=== PATIENT | male | born 1985 | race Caucasian/White ===

== ENCOUNTER → 2025-02-07 | Outpatient (CLI) | payer BC, SELFPAY ==
--- NOTE | 2025-02-07 09:46 | XR_ITS ---
Examination: PA lateral chest 2 views TECHNIQUE: Upright PA lateral chest 2 views Exam date and time: February 07, 2025 1019 hours INDICATIONS: History occupational exposure. FINDINGS: Normal heart size Blunting of the right lateral costophrenic angle. No pneumonia or pulmonary edema The osseous structures are intact IMPRESSION: Blunting of the right lateral costophrenic angle
[2025-02-07 10:55] LABS: Collection Type, Urine Clean Catch; RBC,Urine 0 /hpf (0-3); Squamous Epithelial Cell,Urine 0 /hpf (0-5); WBC,Urine 0 /hpf (0-5)
[2025-02-07 11:36] LABS: Basophils # (Auto) 0.1 Thou/mm3 (0.0-0.2); Basophils % (Auto) 1 % (0-2.5); Eosinophils # (Auto) 0.1 Thou/mm3 (0.0-0.5); Eosinophils % (Auto) 1 % (0-10); Hematocrit 46.8 % (41.0-53.0); Hemoglobin 16.4 g/dL (13.5-16.0); Immature Granulocytes % (Auto) 0 % (0-0); Immature Granulocytes Auto 0.02 Thou/mm3 (0.00-0.00); Lymphocytes # (Auto) 1.9 Thou/mm3 (1.0-4.8); Lymphocytes % (Auto) 26 % (10-50); Mean Corpuscular Hemoglobin 32.7 pg (25.0-35.0); Mean Corpuscular Volume 93 fL (80-100); Monocytes # (Auto) 0.5 Thou/mm3 (0.0-0.8); Monocytes % (Auto) 7 % (0-12); Neutrophils # (Auto) 4.9 Thou/mm3 (1.8-7.7); Neutrophils % (Auto) 65 % (37-80); Nucleated Red Blood Cell % 0 /100 WBC (0); Platelet Count 268 Thou/mm3 (140-440); RDW Standard Deviation 40.2 fL (35.1-43.9); Red Blood Count 5.02 Miln/mm3 (4.50-5.90); White Blood Count 7.5 Thou/mm3 (3.8-10.6)
[2025-02-07 11:41] LABS: Alanine Aminotransferase 16 U/L (10-49); Albumin, Serum 5.1 gm/dL (3.5-5.0); Alkaline Phosphatase 70 U/L (46-116); Anion Gap 5 (7-16); Aspartate Amino Transferase 20 U/L (0-34); BUN/Creatinine Ratio 10 Ratio (12-20); Bilirubin,Total 0.8 mg/dL (0.3-1.2); Blood Urea Nitrogen 11 mg/dL (9-23); Calcium 10.1 mg/dL (8.3-10.6); Calcium (Corrected) 10.1 mg/dL (8.5-10.1); Carbon Dioxide 28.8 mMol/L (20.0-31.0); Chloride 102 mMol/L (98-107); Creatinine (Component) 1.1 mg/dL (0.6-1.3); Globulin 2.6 gm/dL (2.3-3.5); Glucose 107 mg/dL (74-106); Osmolality,Calculated 271 (275-295); Potassium 4.2 mMol/L (3.4-5.1); Sodium 136 mMol/L (136-145); Thyroid Stimulating Hormone 0.61 uIU/mL (0.55-4.78); Total Protein 7.7 gm/dL (5.7-8.2); eGFR > 60 See Note
[2025-02-07 11:47] LABS: Bacteria,Urine Rare; Bilirubin,Urine Negative (Negative); Blood,Urine Negative (Negative); Clarity,Urine Turbid (Clear/Hazy); Color,Urine Lt-Yellow (Lt Yel-Yel); Culture Indicated,Urine Not Indicated; Glucose, Urine Negative (Negative); Ketones,Urine Negative (Negative); Leukocyte Esterase,Urine Negative (Negative); Nitrite,Urine Negative (Negative); Protein,Urine Negative (Neg - Trace); Urobilinogen,Urine Negative mg/dL (0.0-1.0)
[2025-02-07 11:55] LABS: Prostate Specific Antigen 1.36 ng/mL (0-4.00)
[2025-02-07 15:54] LABS: Glucose Estimated Average 103 mg/dL (80-131); Hemoglobin A1C 5.2 % Hgb (4.8-6.0)
[2025-02-07 16:18] LABS: Cardiac Risk Estimate 3.9 RATIO (4.0-6.7); Cholesterol 175 mg/dL (132-200); HDL Cholesterol 45 mg/dL (40-60); LDL Cholesterol,Calculated 111 mg/dL (0-130); Triglycerides 97 mg/dL (30-150)
== END | disposition home or self-care (01) ==
LOC: COPL 09:24
PROVIDERS: PCP Family Medicine; Referring Provider Registered Nurse; Visit Provider Radiology Diagnostic Radiology
DX: Z57.9 Occupational exposure to unspecified risk factor (principal); Z00.00 Encounter for general adult medical examination without abnormal findings
CPT/HCPCS: 36415; 71046; 80053; 80061; 81001; 83036; 84153; 84443; 85025

== ENCOUNTER 2025-03-18 10:41 | Emergency (ER) | payer BC, SELFPAY ==
[2025-03-18 10:50] VITALS: BP 175/115; PULSE 51; RESP 17; TEMP 36.7; O2SAT 100; BMI 28.3
--- NOTE | 2025-03-18 11:11 | XR_ITS ---
Examination: Left elbow 2 views Technique one AP lateral left elbow 2 views Date and time: March 18, 2025, 11:51 AM Indications: Injury to elbow today with dislocation. Findings: Distal humerus displaced anteriorly relative to the ulna and radial head Tiny fracture fragments adjacent to the ulnar notch and adjacent to the radial head Impression: Total elbow dislocation
--- NOTE | 2025-03-18 11:28 | EDNOTE_ITS ---
ED General RME/HPI General Chief complaint: Extremity Injury, Upper Stated complaint: Left elbow pain from fall Time Seen by Provider: 03/18/25 11:10 Arrival date/time: 03/18/25 10:41 Limitations: no limitations RME / HPI RME / HPI narrative: DR. SCHAEFER MAIN ED EVALUATION: 39 year old male presents to the Emergency Department with complaint of left elbow pain/ injury secondary to fall prior to arrival. He states he fell and hit his left elbow with a stationary object. He has an obvious deformity to the left elbow area. No other injuries or symptoms reported at this time. Related Data Home Medications ?Medication ?Instructions ?Recorded ?Confirmed No Known Home Medications 05/03/2404/06 Allergies Allergy/AdvReac Type Severity Reaction Status Date / Time No Known Allergies Allergy Verified 03/18/25 10:45 Review of Systems Review of Systems Systems Reviewed: All systems reviewed, normal except as documented Past Medical History Past Medical History GASTROINTESTINAL: Positive Gastrointestinal Disorders (infection liver), Diverticulitis and Diverticulosis OTHER HISTORY: Positive Hospitalization (diverticulitis, Covid) and Chicken Pox Social History SMOKING STATUS: Never smoker SUBSTANCE USE: does not use ALCOHOL: Never ED Exam General Limitations: Present no limitations General appearance: Present alert and in no apparent distress Head Head exam: Present atraumatic, normocephalic and normal inspection Eye Eye exam: Present normal appearance, PERRL and EOMI ENT ENT exam: Present normal exam, normal oropharynx and mucous membranes moist Neck Neck exam: Present normal inspection, full ROM and trachea midline Chest Chest inspection: Present normal inspection and symmetric chest wall rise Respiratory Respiratory exam: Present normal lung sounds bilaterally Cardiovascular Cardiovascular exam: Present regular rate, normal rhythm and normal heart sounds Abdominal Exam Abdominal exam: Present soft and normal bowel sounds Extremities Exam Extremities exam: Present normal inspection Expanded Upper Extremity Exam Elbow exam: Present deformity (obvious deformity to the posterior left elbow) Back Exam Back exam: Present normal inspection and full ROM Neurological Exam Neurological exam: Present alert, oriented X3 and CN II-XII intact Psychiatric Psychiatric exam: Present normal affect and normal mood Skin Skin exam: Present warm, dry, intact and normal color Course Quality Measures none Orders Category Date Time Status sling [Splint / Immobilizer] STAT Care 03/18/25 12:15 Completed XR elbow LT 2V Stat Exams 03/18/25 11:11 Completed XR elbow comp LT min 3V Stat Exams 03/18/25 12:51 Completed Etomidate Inj [Amidate Inj] Med 03/18/25 11:11 Discontinued 20 mg IV X1 ONE fentaNYL INJ [Sublimaze Inj] Med 03/18/25 11:11 Discontinued 50 mcg IVP X1 ONE Vital Signs Vital signs: Vital Signs Temperature 98.0 F 03/18/25 10:50 Pulse Rate 51 L 03/18/25 10:50 Respiratory Rate 17 03/18/25 10:50 Blood Pressure 175/115 H 03/18/25 10:50 Pulse Oximetry (%) 100 03/18/25 10:50 Oxygen Delivery Method Room Air 03/18/25 10:50 Procedures -ED Orthopedic Joint Reduction Joint #1: Time Out Performed: Yes Side: Left Joint Reduction Location: elbow Analgesia: other (fentanyl) Shoulder Technique Used (if applicable): traction/counter-traction Technique used: traction/counter-traction Post-reduction neuro exam: intact Post-reduction vascular: intact Post Reduction X-Ray Obtained: Yes Post Reduction X-Ray Results: reduced Splint Applied: Yes Patient Tolerated Procedure: well and no complications Discharge Plan Plan Patient Disposition: HOME (Self Care) Patient condition on transfer: Stable Prescriptions/Referrals Prescriptions/Med Rec: No Action No Known Home Medications Referrals: Lynette Tellez NP [Primary Care Provider] - In 1 week Problem List Clinical Impression: Dislocation of elbow, closed Patient/Caregiver Discharge Instructions Discharge Activity: activity as tolerated Education Materials: ED Elbow Dislocation Print Language: Greenlandic Stand Alone Forms: Nickie Award Info., Work/School Release, Patient Portal Info Letter MDM Clinical Information Provided by patient Medical Records Reviewed [facility] Meds/Rx Considered, not Ordered None Labs/Rad/Tests considered, not Ordered None Chronic Illness/Social Conditions Add or document further as needed: Diverticulitis, hospitalization. EKG EKG not done Lab Interpretation Labs: none Imaging Radiology reports / interpretation(s): Procedure(s): XR elbow comp LT min 3V Accession Number(s): [id number] cc: Pavel Schaefer MD; Valentin Amos MD; Lynette Tellez NP~ Examination: Left Computer: AP lateral left elbow 2 views Date and time: March 08, 2025 hours Comparison March 18, 2025, 1153 am INdications: elbow dislocation today Findings: A successful reduction of elbow dislocation. No fx Impression: Successful reduction elbow dislocation. Dictated By: Valentin Amos MD Procedure(s): XR elbow LT 2V Accession Number(s): [id number] cc: Pavel Schaefer MD; Valentin Amos MD; Lynette Tellez NP~ Examination: Left elbow 2 views Technique one AP lateral left elbow 2 views Date and time: March 18, 2025, 11:51 AM Indications: Injury to elbow today with dislocation. Findings: Distal humerus displaced anteriorly relative to the ulna and radial head Tiny fracture fragments adjacent to the ulnar notch and adjacent to the radial head Impression: Total elbow dislocation Dictated By: Valentin Amos MD Medication Administration(s) Medication Administration History Discontinued Medications Etomidate (Etomidate Inj 2 Mg/Ml Vial 10 Ml) 20 mg 0.3 mg/kg (20 mg) IV X1 ONE Stop: 03/18/25 11:12 Last Admin: 03/18/25 12:35 Dose: Not Given Documented By: BETSY Non-Admin Reason: Cancelled by Provider Fentanyl Citrate (Fentanyl Cit Inj 50 Mcg/Ml Amp 2ml) 50 mcg IVP X1 ONE Stop: 03/18/25 11:12 Last Admin: 03/18/25 12:05 Dose: 50 mcg Documented By: BETSY Diagnosis Differential diagnosis: left shoulder fracture, left shoulder dislocation, fall Most likely dx, and/or detailed dx discussion: Dislocation of elbow, closed Dispositon Disposition: Discharge Home
[2025-03-18] MEDS: fentaNYL CIT INJ 50 mCg/ML AMP 2ML IVP (12:05)
[2025-03-18 12:26] VITALS: BP 139/99; PULSE 60; RESP 16; TEMP 37.1; O2SAT 95
--- NOTE | 2025-03-18 12:51 | XR_ITS ---
Examination: Left Computer: AP lateral left elbow 2 views Date and time: March 08, 2025 hours Comparison March 18, 2025, 1153 am INdications: elbow dislocation today Findings: A successful reduction of elbow dislocation. No fx Impression: Successful reduction elbow dislocation.
[2025-03-18 13:59] VITALS: BP 139/91; PULSE 65; RESP 16; TEMP 36.8; O2SAT 96
== END 2025-03-18 14:05 | disposition home or self-care (01) ==
PROVIDERS: Emergency Provider Emergency Medicine; PCP Registered Nurse
DX: S53.115A Anterior dislocation of left ulnohumeral joint, initial encounter (principal); W19.XXXA Unspecified fall, initial encounter; S52.692A Other fracture of lower end of left ulna, initial encounter for closed fracture
CPT/HCPCS: 24605; 73070; 73080; 99284; A4565; J3010